=== PATIENT | female | born 1940 | race Caucasian/White ===

== ENCOUNTER 2019-08-27 10:02 | Emergency (ER) | payer MEDICARE, MEDICAID ==
--- OUTSIDE RECORDS SUMMARY | 2019-08-27 10:14 | XMS REPORT | Summary of Care ---
:1940 Author Organization [facility] Address [address] [facility] [place] [address] Care Team Providers Name Role Phone Faizan Remy Primary Care Provider Olivia Beltre Unavailable Gregorio Duran Unavailable Barbara Roe RN Unavailable Grey Layne Unavailable Jh Cooper Unavailable Reason for Visit Reason Comments Emesis Encounter Details Date Type Department Care Team Description 08/09/2019 Emergency [facility] Emergency Department Ishaan Mcgraw DO Emergency [address] [facility] [place] [id number] [place] [address] Allergies Active Allergy Reactions Severity Noted Date Comments Vu Inhibitors Respiratory Reaction 11/18/2013 cough Ambien Other 09/07/2010 Depression s/s Amiodarone Other 09/30/2018 Reports it caused visual disturbance long-term, incontinence. Cheese Dermatologic Reaction 09/08/2014 Levaquin Other 09/07/2010 Caused visual issues, and joint pain Mushrooms Dermatologic Reaction 09/08/2014 Penicillins Contact Dermatitis 12/06/2003 BLISTERS documented as of this encounter (statuses as of 08/10/2019) Medications Medication Sig Dispensed Refills Start Date End Date Status daily vitamin PO TABS Take 1 Tab by 0 Active mouth DAILY. CALCARB 600/D PO Take by mouth 0 Active DAILY. docusate sodium (COLACE) Take 100 mg by 0 Active 100 MG Oral Cap mouth TWICE DAILY. Cyanocobalamin (VITAMIN Take by mouth 0 Active B-12) 250 MCG Oral Tab DAILY. gabapentin (NEURONTIN) Take 1 Cap by 360 Cap 3 11/12/2018 Active 400 MG Oral mouth FOUR TIMES CapIndications: Chronic DAILY. neck pain metoprolol succinate Take 1 Tab by 90 Tab 3 01/06/2019 Active (TOPROL XL) 25 MG Oral mouth DAILY. TABLET SR 24 HR dofetilide (TIKOSYN) 125 Take 1 Cap by 180 Cap 3 01/27/2019 Active MCG Oral Cap mouth EVERY TWELVE HOURS. atorvastatin (LIPITOR) Take 1 Tab by 90 Tab 3 02/17/2019 Active 40 MG Oral Tab mouth DAILY. alendronate (FOSAMAX) 70 Take 1 Tab by 13 Tab 3 02/17/2019 Active MG Oral TabIndications: mouth EVERY 7 Osteoporosis, DAYS. unspecified osteoporosis type, unspecified pathological fracture presence nitroglycerin Place 1 Tab 1 Bottle 2 02/27/2019 Active (NITROSTAT) 0.4 MG under tongue Sublingual SL Tab EVERY FIVE MINUTES NEEDED for chest pain. meclizine (ANTIVERT) 25 Take 1 Tab by 90 Tab 0 02/27/2019 Active MG Oral Tab mouth THREE TIMES DAILY NEEDED for dizziness/vertig o. Mirabegron ER 50 MG Oral Take 50 mg by 30 Tab 5 05/05/2019 Active TABLET SR 24 HR mouth DAILY. spironolactone Take 1 Tab by 30 Tab 11 06/23/2019 Active (ALDACTONE) 25 MG Oral mouth DAILY. TabIndications: Essential hypertension valsartan (DIOVAN) 80 MG Take 1 Tab by 180 Tab 3 07/22/2019 Active Oral Tab mouth TWICE DAILY. ELIQUIS 5 MG Oral Tab TAKE 1 TAB BY 180 Tab 3 08/03/2019 Active MOUTH TWICE DAILY. documented as of this encounter (statuses as of 08/10/2019) Active Problems Problem Noted Date Atrial fibrillation 05/26/2019 Overview: Added automatically from request for surgery [id number] Atrial flutter 01/29/2019 Facet arthritis, degenerative, lumbar spine 01/06/2019 Overview: Added automatically from request for surgery [id number] Atherosclerosis of red cliff coronary artery of red cliff heart 11/12/2018 Chronic left sacroiliac pain 11/12/2018 Overview: Added automatically from request for surgery [id number] Chronic midline posterior neck pain 09/25/2018 Overview: Added automatically from request for surgery [id number] Facet arthritis, degenerative, cervical spine 09/25/2018 Overview: Added automatically from request for surgery [id number] Atherosclerosis of [place] coronary artery of [place] heart 03/04/2018 Closed nondisplaced fracture of right patella with routine healing 11/08/2017 Atrial fibrillation with RVR 01/20/2017 Spondylosis of lumbosacral region without myelopathy or radiculopathy 2014 Chronic midline low back pain without sciatica 05/09/2015 CKD (chronic kidney disease), stage III 12/21/2014 Cervical spinal stenosis C4/5, C5/6, C6/7 04/19/2014 S/P rotator cuff repair 06/17/2013 Overview: RIGHT Paroxysmal atrial fibrillation 11/27/2011 Overview: Cardioversion 11/27/[address] Mason. Successful with 150 J biphasic shock x 1. AAA (abdominal aortic aneurysm) 06/18/2011 Overview: mid level AAA measured 3.42cm AP x 3.46cm LAT in maximum diameter. Unchanged exam as of 01/01/17 GERD (gastroesophageal reflux disease) 11/15/2008 Overview: Esophago-gastroduodenoscopy 10/17 Dr Rolle-grade B esophagitis. Osteoporosis 09/01/2007 Coronary atherosclerosis of red cliff coronary artery 07/25/2007 Overview: Cardiac cath [facility] 04/18: LVEF >50%, total occlusion RCA, 50 calcified mid LAD, left to right collaterals, Nonobstructive discease LCX-medical management. Essential hypertension, benign 07/25/2007 Mixed hyperlipidemia 07/25/2007 documented as of this encounter (statuses as of 08/10/2019) Resolved Problems Problem Noted Date Resolved Date ELISA (acute kidney injury) 07/02/2019 07/22/2019 Troponin level elevated 12/02/2017 07/22/2019 Fall on same level 10/31/2017 12/01/2017 Osteoporosis 05/16/2016 01/20/2017 Leg pain, left 05/09/2015 05/25/2015 Ankle sprain 04/29/2015 05/25/2015 Left foot pain 04/29/2015 05/25/2015 CAD (coronary artery disease) 04/01/2015 05/25/2015 Precordial pain 04/01/2015 05/25/2015 Left ankle injury 03/29/2015 05/25/2015 Mild traumatic brain injury 03/12/2015 05/25/2015 Sinus node dysfunction 02/04/2015 04/01/2015 A-fib 12/02/2014 04/01/2015 Concussion with brief loss of consciousness 11/22/2014 12/21/2014 Spondylosis of cervical region without myelopathy or 04/19/2014 06/08/2014 radiculopathy Carotid stenosis, asymptomatic 11/09/2013 05/25/2015 Rotator cuff (capsule) sprain 02/25/2013 09/24/2013 Shoulder pain, right 02/09/2013 05/06/2013 Knee pain 01/21/2013 09/24/2013 Carotid artery stenosis, asymptomatic 07/21/2012 09/24/2013 Gastric ulcer; benign 11/15/2008 04/01/2015 Overview: EGD [facility] 10/18. Non-cardiac chest pain 11/15/2008 04/01/2015 Overview: Gastro-intestinal source of pain 10/18-treated with proton pump inhibitor 10/18 with resolution of symptoms. Abnormal cardiovascular stress test 10/29/2008 03/04/2014 Overview: Stress echocardiogram 10/25/2008 IMPRESSION: 1. Positive stress echocardiogram for a small region of ischemia at the inferior base. 2. Fair left ventricular function. 3. Sclerotic mitral valve with mild mitral regurgitation and slight left atrial Enlargement. Cardiac catheterization 04/21/2007 Dr. Davalos Atherosclerotic heart disease with nonobstructive left coronary circumflex and a known chronic total occlusion of the mid right coronary artery (right coronary artery not injected). 2. Normal fractional flow reserve in the left coronary circulation, as above. Osteoarthritis cervical spine 04/27/2008 04/01/2015 Carotid artery stenosis 04/27/2008 03/04/2014 Overview: Bilateral. FLANK PAIN 04/27/2008 05/18/2014 Overview: CT scan [facility] 04/19: thickening of right ureter-rule out mass. Pulmonary nodule 04/19/2008 04/01/2015 Overview: 5 MM right mid lung chst xray [facility] 04/19. Insomnia 09/01/2007 06/08/2014 Angina pectoris 07/25/2007 03/04/2014 Overview: Replaced inactive diagnosis documented as of this encounter (statuses as of 08/10/2019) Immunizations Name Administration Dates Next Due Influenza (IM) Preservative Free 07/22/2019, 05/06/2013, 05/08/2012, 06/06/2011, 05/29/2010, 06/06/2009 Influenza (IM) W/Pres 05/16/2016 Influenza Vaccine High Dose 05/26/2018, 05/31/2017, 05/25/2015, 05/18/2014 Influenza Vaccine Whole 05/13/2007 PNEUMOCOCCAL POLYSACCHARIDE VACCINE 12/03/2011 Pneumococcal Conjugate(13 Valent) 05/25/2015 TDAP Vaccine 05/08/2012 Tetanus Vaccine 01/20/2002 Tuberculin Skin Test 04/26/2004 ZOSTER (ZOSTAVAX) VACCINE 06/18/2012 documented as of this encounter Social History Tobacco Use Types Packs/Day Years Used Date Former Smoker Cigarettes 0.25 30 1959 - 12/02/1989 Smokeless Tobacco: Never Used Comments: light smoker, 2-3 cigarettes a day Alcohol Use Drinks/Week oz/Week Comments No 0.0 Sex Assigned at Date Recorded Not on file Job Start Date Occupation Industry Not on file Not on file Not on file Travel History Travel Start Travel End No recent travel history available. documented as of this encounter Last Filed Vital Signs Vital Sign Reading Time Taken Comments Blood Pressure 150/67 08/09/2019 3:30 PM EST Pulse 73 08/09/2019 3:30 PM EST Temperature 36.7 08/09/2019 11:49 AM EST C (98.1 F) Respiratory Rate 18 08/09/2019 3:30 PM EST Oxygen Saturation 94% 08/09/2019 3:30 PM EST Inhaled Oxygen Concentration - - Weight 65.8 kg (145 lb) 08/09/2019 11:49 AM EST Height 157.5 cm (5' 2") 08/09/2019 11:49 AM EST Body Mass Index 26.52 08/09/2019 11:49 AM EST documented in this encounter Discharge Instructions Adeel Thomas DO - 08/09/2019Return to emergency department if nausea and vomiting return as well as tiredness. Take Zofran as needed for nausea but do not let it mask symptoms as discussed and prevent you from coming back. documented in this encounter Plan of Treatment Date Type Specialty Care Team Description 10/02/2019 Office Visit Family Practice Faizan Remy MD [address] [place] [address] 10/02/2019 Orders Only Cardiology 10/02/2019 Office Visit Cardiology Guy Atkinson, LISSA [address] [place] [address] 03/15/2020 Ancillary Procedure Radiology 03/15/2020 Ancillary Procedure Radiology 03/15/2020 Office Visit Vascular Surgery Gregorio Duran MD [address] [place] [address] 05/25/2020 IPPR Ophthalmology 05/25/2020 Ocular Visit Ophthalmology Jh Cooper MD [address] [place] [address] Name Type Priority Associated Diagnoses Date/Time INPT/ED 12 LEAD EKG EKG STAT 08/09/2019 12:27 PM EST Health Maintenance Due Date Last Done Comments HIV SCREENING 1955 ZOSTER IMMUNIZATION SERIES 08/13/2012 06/18/2012 (2 of 3) FALL RISK ASSESSMENT 09/30/2019 09/30/2018, 09/30/2018 MEDICARE ANNUAL WELLNESS 09/30/2019 09/30/2018, 10/01/2017, VISIT 05/25/2015, Additional history exists DEPRESSION SCREENING 07/22/2020 07/22/2019, 04/22/2018 Colonoscopy 12/17/2021 12/17/2016, 12/17/2016, 10/30/2012, Additional history exists DTaP/Tdap/Td Vaccines (2 - 05/08/2022 05/08/2012 Tdap) OSTEOPOROSIS SCREENING 11/12/2028 11/12/2018, 08/23/2011, 08/23/2011, Additional history exists PNEUMOCOCCAL 65+YRS Completed 05/25/2015, 12/03/2011 INFLUENZA VACCINE Completed 07/22/2019, 05/26/2018, 05/31/2017, Additional history exists HEPATITIS A IMMUNIZATION Aged Out No longer eligible SERIES based on patient's age to complete this topic HPV IMMUNIZATION SERIES Aged Out No longer eligible based on patient's age to complete this topic MENINGOCOCCAL VACCINE IMM Aged Out No longer eligible based on patient's age to complete this topic documented as of this encounter Goals Goal Patient Goal Associated Recent Patient-Stated? Author Type Problems Progress Blood Pressure Blood Pressure 150/67 No [place], < 140/90 (08/09/2019 Scotty Reyes, 3:30 PM EST) Note: Hypertension Care Plan Based on the patient's clinical history and according to JNC 8 guidelines target blood pressure goal is less than 140/90. Based on the patient's last blood pressure of BP: 122/64 mmHg the patient is at at goal. As your provider, it is important that I advise you regarding: your current medications and help you with any challenges you may face taking your medications as directed (ex. instructions, cost, side effects, and interactions). lifestyle changes: exercise and medication compliance your clinical goals and how you can achieve success: weight reduction and exercise plan medication management: N/A diet only patient education/self-management tools provided: Yes To successfully manage my Hypertension I will: monitor my blood pressure daily, understanding that my goal is less than 140/ 90 per my healthcare provider's recommendation. I will schedule an appointment with my provider if consistent abnormal readings greater than 160/100. take medications every day as prescribed by my healthcare provider and if unable to take them I will discuss with my provider. monitor for symptoms of chest pain, chest tightness/pressure, irregular heartbeat, persistent dizziness, radiating arm pain, and neck or jaw pain. If any of these symptoms are noticed I will seek medical attention immediately by calling 911 exercise/walk 15 minutes 6 day(s) per week. If I experience chest pain, chest tightness, or shortness of breath, I will seek medical attention immediately. follow a diet rich in fruits, vegetables, and low-fat dairy products with reduced content of saturated & total fat. I will reduce my sodium intake daily. An example is the DASH diet. To obtain more information please refer to the DASH Eating Plan listed in Educational Resources. record my blood pressure results. Nakitae is safe and secure way for you to do this in your medical record online. try to obtain an ideal body weight. My recent weight was Weight: 139 lb ( 63.05 kg). My weight loss goal for my next office visit is 135 . limit alcohol consumption. For men two drinks per day and women one drink per day. if currently smoking, will discuss how to quit smoking with my healthcare provider and work towards quitting. Educational Resources: National Heart, Lung, & Blood [place] http://nhlbi.nih.gov/hbp/index.html The DASH Diet Eating Plan http://www.nhlbi.nih.gov/health/health-topics/ topics/dash/ Academy of Nutrition & DIetetics http://eatright.org National Smoking Cessation Site http://smokefree.gov Blood Pressure Blood Pressure Essential 150/67 (08/09/2019 No [place], < 140/90 hypertension, benign 3:30 PM EST) Scotty Reyes MD Note: Hypertension Care Plan Based on the patient's clinical history and according to JNC 8 guidelines target blood pressure goal is less than 140/90. Based on the patient's last blood pressure of BP: 144/82 mmHg the patient is at above goal. As your provider, it is important that I advise you regarding: your current medications and help you with any challenges you may face taking your medications as directed (ex. instructions, cost, side effects, and interactions). Important lifestyle changes: exercise, weight reduction and dietary sodium reduction your clinical goals and how you can achieve success: exercise plan and diet improvements medication management: N/A diet only patient education/self-management tools provided: Current self-management tools adequate To successfully manage my Hypertension I will: monitor my blood pressure daily, understanding that my goal is less than 140/ 90 per my healthcare provider's recommendation. I will schedule an appointment with my provider if consistent abnormal readings greater than 160/100. take medications every day as prescribed by my healthcare provider and if unable to take them I will discuss with my provider. monitor for symptoms of chest pain, chest tightness/pressure, irregular heartbeat, persistent dizziness, radiating arm pain, and neck or jaw pain. If any of these symptoms are noticed I will seek medical attention immediately by calling 911 exercise/walk 30 minutes 6 day(s) per week. If I experience chest pain, chest tightness, or shortness of breath, I will seek medical attention immediately. follow a diet rich in fruits, vegetables, and low-fat dairy products with reduced content of saturated & total fat. I will reduce my sodium intake daily. An example is the DASH diet. To obtain more information please refer to the DASH Eating Plan listed in Educational Resources. record my blood pressure results. [place] is safe and secure way for you to do this in your medical record online. try to obtain an ideal body weight. My recent weight was Weight: 137 lb ( 62.143 kg). My weight loss goal for my next office visit is 135 . limit alcohol consumption. For men two drinks per day and women one drink per day. if currently smoking, will discuss how to quit smoking with my healthcare provider and work towards quitting. Educational Resources: National Heart, Lung, & Blood [place] http://nhlbi.nih.gov/hbp/index.html The DASH Diet Eating Plan http://www.nhlbi.nih.gov/health/health-topics/ topics/dash/ Academy of Nutrition & DIetetics http://eatright.org National Smoking Cessation Site http://smokefree.gov Blood Pressure < Blood Pressure 150/67 (08/09/2019 3:30 Faizan Bishop MD 140/90 PM EST) Note: This is an individualized treatment (blood pressure) goal for Kayla Gu Rogersienna: Displayed above (on the left) is your goal for blood pressure control. Your most recent blood pressure is also shown above, on the right. You should try to achieve blood pressures that are lower than your goal listed above (on the left). Work with your Real Estate Representative General Faizan Bishop MD Note: This is an individualized treatment (frequent ED use) goal for Kayla L Wosienna: Please work with your Real Estate Representative, who will assist you in meeting your goals of care. Regular appointments with primary care provider Faizan Reyes MD (PCP) Note: This is an individualized lifestyle goal for Kayla Robbins: Please schedule regular visits with your primary care provider (PCP). Care provided in your PCP's office can help reduce your need for additional trips to the Emergency Room. Take all prescribed medications as directed Self-management Faizan Bishop MD Note: This is an individualized self-management goal for Kayla Gu Rogersienna: Please take all prescribed medications as directed. 1. Do not skip doses. If you cannot afford your medications, talk with your doctor. 2. Use a pill reminder system such as a pill box if needed. Your pharmacist can help you with this. 3. Contact your Pharmacy 5 days before your medication runs out. If you cannot take your medications for any reasons, talk with your doctor. 4. Please bring all of your medication bottles and inhalers (or a list of all your medications/inhalers) with you to every visit. Potential barriers to meeting all of your care plan goals will continue to be addressed on an ongoing basis. documented as of this encounter Implants Implanted Type Area Test Baker Device Shelf Model / Serial Identifier Expiration / Lot Date Iol, [id number] 18.0 Diopter - [id number] Left: Eye STORZ [id number] / Implanted: Qty: 1 on 09/04/2012 at [facility] / [id number] Pushlock 3.5mm - [id number] Right: ARTHREX [id number] / Implanted: Qty: 2 on 05/29/2013 at [facility] Shoulder / [id number] [place] Rotator Cuff 5mm - [id number] Right: BIOMET [id number] / Implanted: Qty: 1 on 05/29/2013 at [facility] Shoulder / [id number] documented as of this encounter Procedures Procedure Name Priority Date/Time Associated Comments Diagnosis XR CHEST 2 VIEW PA AND STAT 08/09/2019 2:43 Results for this LATERAL (STANDARD) PM EST procedure are in the results section. CBC WITH DIFFERENTIAL STAT 08/09/2019 1:23 Results for this PM EST procedure are in the results section. NT PROBNP STAT 08/09/2019 1:23 Results for this PM EST procedure are in the results section. TROPONIN STAT 08/09/2019 1:23 Results for this PM EST procedure are in the results section. COMPREHENSIVE STAT 08/09/2019 1:23 Results for this METABOLIC PANEL PM EST procedure are in the results section. IN PT/ED 12 LEAD EKG STAT 08/09/2019 12:27 PM EST documented in this encounter Results XR CHEST 2 VIEW PA AND LATERAL (STANDARD) (08/09/2019 2:43 PM EST) Specimen Impressions Performed At Stable exam. No active disease in the chest. Urgency: Routine. This is a routine medical imaging report. Recommendation: No specific imaging recommendation Signed by Nito Vilchis on 08/09/2019 2:51 PM Narrative Performed At Procedure(s): XR CHEST 2 VIEW PA AND LATERAL (STANDARD) Date of service: 08/09/2019 2:35 PM Provided clinical information: 79 years, Female, "dizziness" Procedure: Standard protocol. Comparison: 06/20/2019 Observations: PA and lateral radiographs of the chest were obtained. Multiple radiopaque wires overlie the chest. The lungs are clear without evidence of focal airspace consolidation. There is no pulmonary vascular congestion. There is no pneumothorax or pleural effusion. The cardiomediastinal silhouette is grossly stable. Thoracic aorta is tortuous and calcified. The included osseous structures are unchanged. Procedure Note Interface, Rad Results - 08/09/2019 2:53 PM EST Procedure(s): XR CHEST 2 VIEW PA AND LATERAL (STANDARD) Date of service: 08/09/2019 2:35 PM Provided clinical information: 79 years, Female, "dizziness" Procedure: Standard protocol. Comparison: 06/20/2019 Observations: PA and lateral radiographs of the chest were obtained. Multiple radiopaque wires overlie the chest. The lungs are clear without evidence of focal airspace consolidation. There is no pulmonary vascular congestion. There is no pneumothorax or pleural effusion. The cardiomediastinal silhouette is grossly stable. Thoracic aorta is tortuous and calcified. The included osseous structures are unchanged. IMPRESSION Stable exam. No active disease in the chest. Urgency: Routine. This is a routine medical imaging report. Recommendation: No specific imaging recommendation Signed by Nito Vilchis on 08/09/2019 2:51 PM NT PROBNP (08/09/2019 1:23 PM EST) NT PRO BNP 2,460 (H) <450 pg/ml [facility] Comment: [facility] Recommended cut points for the diagnostic evaluation of heart failure patients with acute dyspnea* Ages (years) Optimal [place] (pg/ml) <50 450 50-75 900 >75 1800 *The [place] Journal of Cardiology NTproBNP results should be interpreted in the context of the overall picture. Serum concentrations of natriuretic peptides may be elevated in patients with acute myocardial infarction and renal insuffic iency. Certain drugs may alter results. Heterophilic antibodies are known to cause interference with immunoassays. Results which are inconsistent with clinical observation indicate a need for additional testing. NTproBNP testing performed on [employer]. Results will not correlate with other methodologies. Specimen Blood - Blood specimen (specimen) Performing Organization Address City/State/Zipcode Phone Number [facility] [address] [place] [address] TROPONIN (08/09/2019 1:23 PM EST) Troponin 0.016 0.000 - 0.034 [facility] Comment: ng/ml [facility] Negative less than or equal to 0.034 ng/ml Indeterminate 0.0351 - 0.119 ng/ml (Suggest Repeat in 4 Hours) Critical (AMI Cutoff) greater than or equal to 0.120 ng/ml Specimen Blood - Blood specimen (specimen) Performing Organization Address City/State/[facility] Phone Number [facility] [address] [place] [address] COMPREHENSIVE METABOLIC PANEL (08/09/2019 1:23 PM EST) Pathologist [facility] Sodium 135 134 - 145 mmol/L [facility] Potassium 4.0 3.5 - 5.1 mmol/L [facility] Chloride 105 98 - 107 mmol/L [facility] CO2 22 22 - 30 mmol/L [facility] Calcium 8.8 8.3 - 10.1 mg/dl [facility] Albumin 3.5 3.5 - 5.0 g/dl [facility] BUN 11 7 - 17 mg/dl [facility] Creatinine 1.0 0.7 - 1.2 mg/dl [facility] Glucose 95 70 - 99 mg/dl [facility] Total Protein 7.1 6.3 - 8.2 g/dl [facility] Total Bilirubin 1.2 (H) 0.0 - 1.1 MG/DL [facility] AST 28 15 - 46 U/L [facility] ALT 28 9 - 52 U/L [facility] Alkaline 60 40 - 150 U/L [facility] Phosphatase [facility] eGFR 53 See Interpretation [facility] Comment: Below ml/min/1.73ml GROUP Estimated GFR Interpretation: Sq LABORATORY Above 60ml/min/1.73m2 = Normal Renal Function 30-59 ml/min/1.73m2 = Stage 3 Chronic Kidney Disease 15-29 ml/min/1.73m2 = Stage 4 Chronic Kidney Disease Less than 15 ml/min/1.73m2 = Stage 5 Chronic Kidney Disease The GFR value is calculated using the Modification of Diet in Renal Disease ( MDRD) Study Equation which can be found at: https://www.kidney.org/content/asog-recoe-siauhgdj BUN/Creatinine 11 6 - 22 RATIO [facility] LABORATORY Anion Gap 8 3 - 11 mmol/L [facility] A/G Ratio 1.0 0.8 - 2.0 ratio [facility] Specimen Blood - Blood specimen (specimen) Performing Organization Address City/State/Zipcode Phone Number [facility] [address] [place] [address] [phone] CBC WITH DIFFERENTIAL (08/09/2019 1:23 PM EST) WBC Count 6.63 3.98 - 10.04 K/uL [facility] RBC Count 3.72 (L) 3.93 - 5.22 M/UL [facility] Hemoglobin 11.1 (L) 11.2 - 15.7 g/dL [facility] Hematocrit 34.0 (L) 34.1 - 44.9 % [facility] MCV 91.4 79.4 - 94.8 FL [facility] MCH 29.8 25.6 - 32.2 PG [facility] MCHC 32.6 32.2 - 35.5 g/dL [facility] Platelet Count 142 (L) 182 - 369 K/uL [facility] MPV 10.8 9.4 - 12.3 FL [facility] RDW 12.9 11.7 - 14.4 % [facility] Neutrophil % 56.9 34.0 - 71.1 % [facility] Lymphocyte % 29.6 19.3 - 51.7 % [facility] Monocyte % 12.1 4.7 - 12.5 % [facility] Eosinophil % 0.6 (L) 0.7 - 5.8 % [facility] Basophil % 0.6 0.1 - 1.2 % [facility] nRBC % 0.0 0.0 - 0.2 % [facility] Neutrophil # 3.78 1.56 - 6.13 K/UL [facility] Lymphocyte # 1.96 1.18 - 3.74 K/UL [facility] Monocyte # 0.80 0.24 - 0.86 K/UL [facility] Eosinophil # 0.04 0.04 - 0.36 K/UL [facility] Basophil # 0.04 0.01 - 0.08 K/UL [facility] Immature Gran % 0.2 0.0 - 0.4 % [facility] Immature Gran # 0.01 0.00 - 0.03 K/uL [facility] NRBC # 0.00 0.00 - 0.12 K/uL [facility] Specimen Blood - Blood specimen (specimen) Performing Organization Address City/State/Zipcode Phone Number [facility] [address] [place] [address] documented in this encounter Visit Diagnoses Diagnosis Paroxysmal atrial fibrillation (HCC) Atrial fibrillation documented in this encounter Administered Medications Medication Order MAR Action Action Date Dose Rate Site apixaban (ELIQUIS) tablet 5 mg Given 08/09/2019 3:00 PM EST 5 mg 5 mg, Oral, BID, 60 doses, First dose on 08/09/19 at 1405, Last dose on Sat09/07/19 at 2100, For patients who are unable to swallow whole tablets, 5 mg and 2.5 mg ELIQUIS tablets may be crushed and suspended in water, 5% dextrose in water (D5W) , apple juice, or mixed with applesauce and promptly administered orally. Alternatively, ELIQUIS tablets may be crushed and suspended in 60 mL of water or D5W and promptly delivered through a nasogastric tube. Crushed ELIQUIS tablets are stable in water, D5W, apple juice, and applesauce for up to 4 hours., dofetilide (TIKOSYN) capsule 125 mcg Given 08/09/2019 3:01 PM EST 125 mcg 125 mcg, Oral, Q12 HRS, First dose on 08/09/19 at 1500, Until Discontinued, Restarting home medication, For any NEW patient starting therapy with Tikosyn or for dose escalation on ANY patient, the following must be done to monitor for QTc prolongation Baseline EKG (prior to first dose or dose escalation); Tikosyn contraindicated if QTc > 500 msec (550 msec in patients with ventricular conduction abnormalities). EKG 2-3 hours after EVERY administration of Tikosyn. After the FIRST dose of Tikosyn, provider must be notified if the QTc has increased by greater than 15% compared to the baseline QTc OR if the QTc > 500 msec (550 sec in patients with ventricular conduction abnormalities). Any time after the SECOND dose of Tikosyn, provider MUST be notified if QTc exceeds 500 msec (550 msec in patients with ventricular conduction abnormalities). , lactated ringers IV 1,000 mL New Bag 08/09/2019 12:54 PM EST 1,000 mL 1,000 mL, Intravenous, BOLUS, 1 dose, 08/09/19 at 1345 lactated ringers IV 500 mL New Bag 08/09/2019 3:08 PM EST 500 mL 500 mL, Intravenous, BOLUS, 1 dose, 08/09/19 at 1505 metoprolol (LOPRESSOR) injection 5 mg Given 08/09/2019 1:18 PM EST 5 mg 5 mg, Intravenous Push, NOW, 1 dose, 08/09/19 at 1250, Equivalent,maximal B-blockade at ratio of 2.5 mg PO = 1 mg IV, metoprolol succinate (TOPROL XL) 24 hour Given 08/09/2019 3:01 PM EST 25 mg tablet 25 mg 25 mg, Oral, DAILY, First dose on 08/09/19 at 1405, Until Discontinued, This medication dosage form should NOT be crushed. Please call the inpatient Pharmacy for more information. [facility] ext. [phone] [employer] ext. [phone] [facility] ext. 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 Order was discussed with: Unable to determine at this time I discussed all options and Unable to determine at this time (full patient/surrogate requested and agreed to: code until choice is made and new order placed) Full Code 01/27/2019 11:27 AM 02/26/2019 12:34 PM Does the patient have decision making Yes capacity? Order was discussed with: Unable to determine at this time I discussed all options and Unable to determine at this time (full patient/surrogate requested and agreed to: code until choice is made and new order placed) Full Code 12/01/2017 5:34 PM 12/03/2017 3:59 PM Does patient have decision making capacity? yes Order discussed with: Patient I discussed all options and patient/surrogate requested and agreed to: Full Code Full Code 08/06/2016 2:02 AM 08/07/2016 6:39 PM Does patient have decision making capacity? yes Order discussed with: Patient I discussed all options and patient requested and agreed to: Full Code
--- OUTSIDE RECORDS SUMMARY | 2019-08-27 10:14 | XMS REPORT | Summary of Care ---
:1940 Author Organization [facility] Address [address] [facility] [place] [address] Care Team Providers Name Role Phone Faizan Remy Primary Care Provider Olivia Beltre Unavailable Gregorio Duran Unavailable Barbara Roe RN Unavailable Grey Layne Unavailable Jh Cooper Unavailable Reason for Visit Reason Comments Fall on anticoagulation Shoulder Pain Neck Pain Bleeding/Bruising Encounter Details Date Type Department Care Team Description 08/26/2019 Office Visit [place] [facility] Nafisa Mercado, Queta, initial encounter (Primary Dx); 1 [facility] 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 Cheese Dermatologic Reaction 09/08/2014 Levaquin Other 09/07/2010 Caused visual issues, and joint pain Mushrooms Dermatologic Reaction 09/08/2014 Penicillins Contact Dermatitis 12/06/2003 BLISTERS documented as of this encounter (statuses as of 08/26/2019) Medications Medication Sig Dispensed Refills Start Date [...] as of this encounter (statuses as of 08/26/2019) Active Problems Problem Noted Date Atrial fibrillation 05/26/2019 Overview: Added automatically from request for surgery [id number] Atrial flutter 01/29/2019 Facet arthritis, degenerative, lumbar spine 01/06/2019 Overview: Added automatically from request for surgery [id number] Atherosclerosis of iroquois coronary artery of iroquois heart 11/12/2018 Chronic left sacroiliac pain 11/12/2018 Overview: Added automatically from request for surgery [id number] Chronic midline posterior neck pain 09/25/2018 Overview: Added automatically from request for surgery [id number] Facet arthritis, degenerative, cervical spine 09/25/2018 Overview: Added automatically from request for surgery [id number] Atherosclerosis of iroquois coronary artery of iroquois heart 03/04/2018 Closed nondisplaced fracture of right [...] B esophagitis. Osteoporosis 09/01/2007 Coronary atherosclerosis of iroquois coronary artery 07/25/2007 Overview: Cardiac cath [facility] 04/18: LVEF >50%, total occlusion RCA, 50 calcified mid LAD, left to right collaterals, Nonobstructive discease LCX-medical management. Essential hypertension, benign 07/25/2007 Mixed hyperlipidemia 07/25/2007 documented as of this encounter (statuses as of 08/26/2019) Resolved Problems Problem Noted Date Resolved Date [...] Gastric ulcer; benign 11/15/2008 04/01/2015 Overview: EGD [facility] 10/18. Non-cardiac chest pain 11/15/2008 04/01/2015 Overview: [...] FLANK PAIN 04/27/2008 05/18/2014 Overview: CT scan [facility] 04/19: thickening of right ureter-rule out mass. Pulmonary nodule 04/19/2008 04/01/2015 Overview: 5 MM right mid lung chst xray [facility] 04/19. Insomnia 09/01/2007 06/08/2014 Angina pectoris 07/25/2007 03/04/2014 Overview: Replaced inactive diagnosis documented as of this encounter (statuses as of 08/26/2019) Immunizations Name Administration Dates Next Due Influenza [...] of this encounter Last Filed Vital Signs Not on filedocumented in this encounter Progress Notes Nafisa Mercado FNP - 08/26/2019 12:30 PM ESTPATIENT: Kayla Robbins : 1940 DATE OF SERVICE: 08/26/2019 Kayla presents to the walk in clinic with complaints of neck, left shoulder and side pain after a fall on Saturday evening. She stepped backwards and thought she stepped on her cat. In trying to quickly move, she fell, landing on her left side. Has a significant bruise on her left thigh, pain in the arm and shoulder, and has neck discomfort. She also takes a blood thinner. Advised that she needs to go to the ER for evaluation. She agreed and was taken via wheelchair. Author: RAMESH Young 08/26/2019 12:38 documented in this encounter Plan of Treatment Date Type Specialty Care Team Description 09/07/2019 Office Visit Family Practice Argenis Bocanegra DO [address] [place] [id number] 10/02/2019 Office Visit Family Practice Faizan Remy MD [address] [place] [id number] [phone] 10/02/2019 Orders Only Cardiology 10/02/2019 Office Visit Cardiology Guy Atkinson NP [address] [place] [id number] 03/15/2020 Ancillary Procedure Radiology 03/15/2020 Ancillary Procedure Radiology 03/15/2020 Office Visit Vascular Surgery Gregorio Duran MD [address] [place] [address] 05/25/2020 IPPR Ophthalmology 05/25/2020 Ocular Visit Ophthalmology Jh Cooper MD [address] [place] [id number] Health Maintenance Due Date Last Done Comments [...] Progress Blood Pressure Blood Pressure 150/67 No Dewitt, < 140/90 (08/09/2019 Scotty Reyes, 3:30 PM [...] Educational Resources: National Heart, Lung, & Blood [place] http://nhlbi.nih.gov/hbp/index.html The DASH Diet Eating Plan http://www.nhlbi.nih.gov/health/health-topics/ topics/dash/ Academy of Nutrition & DIetetics http://eatright.org National Smoking Cessation Site http://smokefree.gov Blood Pressure Blood Pressure Essential 150/67 (08/09/2019 No Dewitt, < 140/90 hypertension, benign 3:30 PM EST) [...] Educational Resources: National Heart, Lung, & Blood [place] http://nhlbi.nih.gov/hbp/index.html The DASH Diet Eating Plan http://www.nhlbi.nih.gov/health/health-topics/ topics/dash/ Academy of Nutrition & DIetetics http://eatright.org National Smoking Cessation Site http://smokefree.gov Blood Pressure < Blood Pressure 150/67 (08/09/2019 3:30 Faizan Bishop MD 140/90 PM EST) Note: This is an individualized treatment (blood pressure) goal for Kayla L [place]: Displayed above (on the left) is your goal for blood pressure control. Your most recent blood pressure is also shown above, on the right. You should try to achieve blood pressures that are lower than your goal listed above (on the left). Work with your Rotating Field Assembler General Faizan Bishop MD Note: This is an individualized treatment (frequent ED use) goal for Kayla Robbins: Please work with your Rotating Field Assembler, who will assist you in meeting your [...] is an individualized self-management goal for Kayla Robbins: Please take all prescribed medications as directed. [...] of this encounter Implants Implanted Type Area Supervisor Display Fabrication Device Shelf Model / Serial Identifier Expiration / Lot Date Iol, [id number] 18.0 Diopter - [id number] Left: Eye STORZ [id number] / Implanted: Qty: 1 on 09/04/2012 at [facility] / [id number] Pushlock 3.5mm - [id number] Right: [id number] [id number] / Implanted: Qty: 2 on 05/29/2013 at [facility] Shoulder / [id number] [place] Rotator Cuff 5mm - [id number] Right: [id number] / Implanted: Qty: 1 on 05/29/2013 at [facility] Shoulder / [id number] documented as of this encounter Results Not on filedocumented in this encounter Visit Diagnoses Diagnosis Fall, initial encounter Injury of left shoulder, initial encounter Neck pain Cervicalgia Ecchymosis Other specified circulatory system disorders documented in this encounter Insurance Payer Benefit Plan / Subscriber ID Effective Dates Phone Address Type Group [facility] MEDICARE [facility] DUAL COMPLETE xxxxxxxxx 2019-Present [facility] ADVANTAGE [place] (Home) [address], [place] (Work) [id number] documented as of this encounter Advance Directives Type Date Recorded Patient Quality Reviewer Explanation Advance Directives 01/03/2018 10:11 AM Code [...]
--- OUTSIDE RECORDS SUMMARY | 2019-08-27 10:14 | XMS REPORT | Summary of Care ---
:[address] [facility] Address [address] [facility] [place] [address] Care Team Providers Name Role Phone Faizan Remy Primary Care Provider Olivia Beltre Unavailable Gregorio Duran Unavailable Barbara Roe RN Unavailable Grey Layne Unavailable Jh Cooper Unavailable Reason for Visit Reason Comments Check Up Encounter Details Date Type Department Care Team Description 07/22/2019 Office Visit Faizan Brewer, Paroxysmal atrial fibrillation (HCC) (Primary Dx); Practice MD CKD (chronic kidney disease), stage III (HCC); 1 [facility] 1 [facility] Abdominal aortic aneurysm (AAA) without rupture (HCC); [place] [id number] [place] [address] Atherosclerosis of [place] coronary artery of [place] heart with other form of angina pectoris (HCC); [phone] Chronic midline low back pain without sciatica; [phone] Need for influenza vaccination (Fax) Allergies Active Allergy Reactions Severity Noted Date Comments Vu Inhibitors Respiratory Reaction 11/18/2013 cough Ambien Other 09/07/2010 Depression s/s Amiodarone Other 09/30/2018 Reports it caused visual disturbance long-term, incontinence. Cheese Dermatologic Reaction 09/08/2014 Levaquin Other 09/07/2010 Caused visual issues, and joint pain Mushrooms Dermatologic Reaction 09/08/2014 Penicillins Contact Dermatitis 12/06/2003 BLISTERS documented as of this encounter (statuses as of 07/22/2019) Medications Medication Sig Dispensed Refills Start Date End Date Status daily vitamin PO TABS Take 1 Tab by 0 Active mouth DAILY. CALCARB 600/D PO Take by 0 Active mouth DAILY. docusate sodium Take 100 mg 0 Active (COLACE) 100 MG Oral by mouth Cap TWICE DAILY. Cyanocobalamin Take by 0 Active (VITAMIN B-12) 250 MCG mouth DAILY. Oral Tab gabapentin (NEURONTIN) Take 1 Cap by 360 Cap 3 11/12/2018 Active 400 MG Oral mouth FOUR CapIndications: TIMES DAILY. Chronic neck pain metoprolol succinate Take 1 Tab by 90 Tab 3 01/06/2019 Active (TOPROL XL) 25 MG Oral mouth DAILY. TABLET SR 24 HR dofetilide (TIKOSYN) Take 1 Cap by 180 Cap 3 01/27/2019 Active 125 MCG Oral Cap mouth EVERY TWELVE HOURS. apixaban (ELIQUIS) 5 Take 1 Tab by 180 Tab 3 02/02/2019 Active MG Oral Tab mouth TWICE DAILY. atorvastatin (LIPITOR) Take 1 Tab by 90 Tab 3 02/17/2019 Active 40 MG Oral Tab mouth DAILY. alendronate (FOSAMAX) Take 1 Tab by 13 Tab 3 02/17/2019 Active 70 MG Oral mouth EVERY 7 TabIndications: DAYS. Osteoporosis, unspecified osteoporosis type, unspecified pathological fracture presence nitroglycerin Place 1 Tab 1 Bottle 2 02/27/2019 Active (NITROSTAT) 0.4 MG under tongue Sublingual SL Tab EVERY FIVE MINUTES NEEDED for chest pain. meclizine (ANTIVERT) Take 1 Tab by 90 Tab 0 02/27/2019 Active 25 MG Oral Tab mouth THREE TIMES DAILY NEEDED for dizziness/sherin tigo. Mirabegron ER 50 MG Take 50 mg by 30 Tab 5 05/05/2019 Active Oral TABLET SR 24 HR mouth DAILY. spironolactone Take 1 Tab by 30 Tab 11 06/23/2019 Active (ALDACTONE) 25 MG Oral mouth DAILY. TabIndications: Essential hypertension valsartan (DIOVAN) 80 Take 1 Tab by 180 Tab 3 07/22/2019 Active MG Oral Tab mouth TWICE DAILY. pantoprazole Take 1 Tab by 90 Tab 3 01/08/2019 Discontinued (PROTONIX) 40 MG Oral mouth DAILY. 9 Tab ECIndications: Gastroesophageal reflux disease without esophagitis documented as of this encounter (statuses as of 07/22/2019) Active Problems Problem Noted Date Atrial fibrillation 05/26/2019 Overview: Added automatically from request for surgery [id number] Atrial flutter 01/29/2019 Facet arthritis, degenerative, lumbar spine 01/06/2019 Overview: Added automatically from request for surgery [id number] Atherosclerosis of [place] coronary artery of [place] heart 11/12/2018 Chronic left sacroiliac pain 11/12/2018 Overview: Added automatically from request for surgery [id number] Chronic midline posterior neck pain 09/25/2018 Overview: Added automatically from request for surgery [id number] Facet arthritis, degenerative, cervical spine 09/25/2018 Overview: Added automatically from request for surgery [id number] Atherosclerosis of [place] coronary artery of [place] heart 03/04/2018 Closed nondisplaced fracture of right [...] B esophagitis. Osteoporosis 09/01/2007 Coronary atherosclerosis of [place] coronary artery 07/25/2007 Overview: Cardiac cath [facility] 04/18: LVEF >50%, total occlusion RCA, 50 calcified mid LAD, left to right collaterals, Nonobstructive discease LCX-medical management. Essential hypertension, benign 07/25/2007 Mixed hyperlipidemia 07/25/2007 documented as of this encounter (statuses as of 07/22/2019) Resolved Problems Problem Noted Date Resolved Date [...] Gastric ulcer; benign 11/15/2008 04/01/2015 Overview: EGD [facility] 10/18. Non-cardiac chest pain 11/15/2008 04/01/2015 Overview: [...] FLANK PAIN 04/27/2008 05/18/2014 Overview: [place] [facility] 04[place]19: thickening of right ureter-rule out mass. Pulmonary nodule 04/19/2008 04/01/2015 Overview: 5 MM right mid lung [place] [facility] [place]. Insomnia 09/01/2007 06/08/2014 Angina pectoris 07/25/2007 03/04/2014 Overview: Replaced inactive diagnosis documented as of this encounter (statuses as of 07/22/2019) Immunizations Name Administration Dates Next Due Influenza [...] Used Date Former Smoker Cigarettes 0.25 30 1960 - 12/02/1989 Smokeless Tobacco: Never Used Comments: [...] Sign Reading Time Taken Comments Blood Pressure 116/64 07/22/2019 9:13 AM EST Pulse 62 07/22/2019 9:13 AM EST Temperature 36.6 07/22/2019 9:13 AM EST C (97.8 F) Respiratory Rate 18 07/22/2019 9:13 AM EST Oxygen Saturation 96% 07/22/2019 9:13 AM EST Inhaled Oxygen Concentration - - Weight 62.1 kg (137 lb) 07/22/2019 9:13 AM EST Height 157.5 cm (5' 2") 07/22/2019 9:13 AM EST Body Mass Index 25.06 07/22/2019 9:13 AM EST documented in this encounter Progress Notes Faizan Remy MD - 07/22/2019 9:40 AM EST PATIENT: Kayla Robbins : 1940 DATE OF SERVICE: 07/22/2019 CHIEF COMPLAINT: Chief Complaint Patient presents with Check Up Subjective HISTORY OF PRESENT ILLNESS: Kayla Robbins is a 79-y.o. female. HPI Patient is here for assessment of: 1. Abdominal aortic aneurysm (AAA), Follows with Dr. Duran annually 2. Bilateral carotid artery stenosis; currently the right side, stable, follows with Dr. Duran 3. S/P left carotid endarterectomy in 2003; stable 4. Atherosclerosis of [place] coronary artery of [place] heart without angina pectoris; stable on Eliquis, Lipitor 40 5. Diastolic dysfunction; grade 1, with no current symptoms. On Olmesartan, aldactone. 6. Paroxysmal atrial fibrillation with several previous cardioversions, status post pulmonary vein isolation. Follows with cardiology; takes Toprol, Tikosyn, Eliquis 7. S/P ablation of atrial fibrillation; on Eliquis 8. Osteoarthritis of multiple joints; stable, takes tylenol 500 mg every 4 hours as needed for pain up to 3 grams (6 tablets) a day.On Gabapentin 9. Essential hypertension, benign; on Olmesartan, spironolactone. 10. Osteoporosis; stable on alendronate 70 mg weekly Past Medical History: Diagnosis Date A-fib (HCC) Acute coronary syndrome (HCC) ELISA (acute kidney injury) (HCC) 07/02/2019 ASHD 07/25/2007 Cardiac cath [facility] [place] 04/18: LVEF >50%, total occlusion RCA, 50 calcified mid LAD, left to right collaterals, Nonobstructive discease LCX- medical management. Carotid artery stenosis 04/27/2008 Bilateral. DJD[715.90AB] Gastric ulcer; benign 11/15/2008 GERD (gastroesophageal reflux disease) 11/15/2008 HTN 07/25/2007 Hyperlipidemia 07/25/2007 Hypertension Insomnia 09/01/2007 Kidney disorder Non-cardiac chest pain 11/15/2008 Gastro-intestinal source of pain 10/18-treated with proton pump inhibitor 10/18 with resolution of symptoms. Osteoarthritis cervical spine 04/27/2008 Osteoporosis, unspecified 09/01/2007 Postmenopausal Pulmonary nodule 04/19/2008 5 MM right mid lung chst xray [facility] 04/19. Reflux Right patella fracture 10/30/2017 Troponin level elevated 12/02/2017 Family History Problem Relation Age of Onset Heart Father Heart Mother Heart Sister Heart Sister No Known Problems Son Heart Maternal Grandmother Heart Maternal Grandfather Heart Paternal Grandmother Heart Paternal Grandfather Anesth Problems No family history Arthritis No family history Clotting Disorder No family history Cancer No family history Heart Disease No family history Diabetes No family history Kidney Disease No family history Hypertension No family history Thyroid Disease No family history Current Outpatient Medications Medication Sig alendronate (FOSAMAX) 70 MG Oral Tab Take 1 Tab by mouth EVERY 7 DAYS. apixaban (ELIQUIS) 5 MG Oral Tab Take 1 Tab by mouth TWICE DAILY. atorvastatin (LIPITOR) 40 MG Oral Tab Take 1 Tab by mouth DAILY. CALCARB 600/D PO Take by mouth DAILY. Cyanocobalamin (VITAMIN B-12) 250 MCG Oral Tab Take by mouth DAILY. daily vitamin PO TABS Take 1 Tab by mouth DAILY. docusate sodium (COLACE) 100 MG Oral Cap Take 100 mg by mouth TWICE DAILY. dofetilide (TIKOSYN) 125 MCG Oral Cap Take 1 Cap by mouth EVERY TWELVE HOURS. gabapentin (NEURONTIN) 400 MG Oral Cap Take 1 Cap by mouth FOUR TIMES DAILY. meclizine (ANTIVERT) 25 MG Oral Tab Take 1 Tab by mouth THREE TIMES DAILY NEEDED for dizziness/vertigo. metoprolol succinate (TOPROL XL) 25 MG Oral TABLET SR 24 HR Take 1 Tab by mouth DAILY. Mirabegron ER 50 MG Oral TABLET SR 24 HR Take 50 mg by mouth DAILY. nitroglycerin (NITROSTAT) 0.4 MG Sublingual SL Tab Place 1 Tab under tongue EVERY FIVE MINUTES NEEDED for chest pain. spironolactone (ALDACTONE) 25 MG Oral Tab Take 1 Tab by mouth DAILY. valsartan (DIOVAN) 80 MG Oral Tab Take 1 Tab by mouth TWICE DAILY. No current facility-administered medications for this visit. Allergies Allergen Reactions Vu Inhibitors Respiratory Reaction cough Ambien Other Depression s/s Amiodarone Other Reports it caused visual disturbance long-term, incontinence. Cheese Dermatologic Reaction Levaquin Other Caused visual issues, and joint pain Mushrooms Dermatologic Reaction Pcn [Penicillins] Contact Dermatitis BLISTERS Social History Socioeconomic History Marital status: Spouse name: Not on file Number of children: Not on file Years of education: Not on file Highest education level: Not on file Occupational History Not on file Social Needs Financial resource strain: Not on file Food insecurity Worry: Not on file Inability: Not on file Transportation needs Medical: Not on file Non-medical: Not on file Tobacco Use Smoking status: Former Smoker Packs/day: 0.25 Years: 30.00 Pack years: 7.50 Types: Cigarettes Start date: 1959 Last attempt to quit: 12/02/1989 Years since quittin.6 Smokeless tobacco: Never Used Tobacco comment: light smoker, 2-3 cigarettes a day Substance and Sexual Activity Alcohol use: No Alcohol/week: 0.0 standard drinks Drug use: No Sexual activity: Never Lifestyle Physical activity Days per week: Not on file Minutes per session: Not on file Stress: Not on file Relationships Social connections Talks on phone: Not on file Gets together: Not on file Attends holiness service: Not on file Active member of club or organization: Not on file Attends meetings of clubs or organizations: Not on file Relationship status: Not on file Intimate partner violence Fear of current or ex partner: Not on file Emotionally abused: Not on file Physically abused: Not on file Forced sexual activity: Not on file Other Topics Concern Back Care Not Asked Bike Helmet Not Asked Blood Transfusions Not Asked Caffeine Concern Not Asked Exercise Yes Comment: walks daily Hobby Hazards Not Asked International Travel Not Asked Service Not Asked Occupational Exposure Not Asked Seat Belt Not Asked Self-Exams Not Asked Sleep Concern Not Asked Special Diet Yes Comment: low fat and cholesterol Stress Concern No Weight Concern No Social History Narrative 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 Lives alone. Over the last 2 weeks, have you been feeling down, depressed, anxious, or hopeless?: 0 Over the past 2 weeks, have you felt little interest or pleasure in doing things ?: 0 REVIEW OF SYSTEMS: ROS Constitutional: Negative for chills, fever, malaise/fatigue and weight loss. Respiratory: Negative for cough, hemoptysis, sputum production, shortness of breath and wheezing. Cardiovascular: Negative for chest pain and palpitations. Gastrointestinal: Negative for abdominal pain, blood in stool, diarrhea and melena. Genitourinary: Negative for hematuria. Neurological: Negative for headaches. Objective PHYSICAL EXAM: VITALS: BP 116/64 (BP Location: Right arm, Patient Position: Sitting) | Pulse 62 | Temp 97.8 F (36.6 C) (Tympanic) | Resp 18 | Ht 5' 2" (1.575 m) | Wt 137 lb (62.1 kg) | SpO2 96% | BMI 25.06 kg/m Body mass index is 25.06 kg/m. Physical Exam Constitutional: She is oriented to person, place, and time and well-developed, well-nourished, and in no distress. No distress. HENT: Head: Normocephalic and atraumatic. Right Ear: External ear normal. Left Ear: External ear normal. Nose: Nose normal. Eyes: Conjunctivae are normal. Right eye exhibits no discharge. Left eye exhibits no discharge. No scleral icterus. Neck: No thyromegaly present. Cardiovascular: Irregular rhythm and intact distal pulses. scar of left carotid endarterectomy Pulmonary/Chest: Effort normal and breath sounds normal. No respiratory distress. She has no wheezes. She has no rales. Abdominal: Soft. Bowel sounds are normal. Musculoskeletal: She exhibits no edema. Lymphadenopathy: She has no cervical adenopathy. Neurological: She is alert and oriented to person, place, and time. Skin: Skin is warm and dry. She is not diaphoretic. Psychiatric: Affect and judgment normal. Vitals reviewed. ASSESSMENT / IMPRESSION: ICD-9-CM ICD-10-CM 1. Paroxysmal atrial fibrillation (HCC) 427.31 I48.0 2. CKD (chronic kidney disease), stage III (HCC) 585.3 N18.3 3. Abdominal aortic aneurysm (AAA) without rupture (HCC) 441.4 I71.4 4. Atherosclerosis of [place] coronary artery of [place] heart with other form of angina pectoris (HCC) 414.01 I25.118 413.9 5. Chronic midline low back pain without sciatica 724.2 M54.5 338.29 G89.29 6. Need for influenza vaccination V04.81 Z23 [place] FLU VACCINE PRES FREE 6MOS+ 1. Abdominal aortic aneurysm (AAA) without rupture; aorta duplex showed no change. Follows with Dr. Duran annually 2. Bilateral carotid artery stenosis; currently the right side, stable, follows with Dr. Duran 3. S/P left carotid endarterectomy in 2003; stable 4. Atherosclerosis of [place] coronary artery of [place] heart without angina pectoris; stable had cardiac cath, last one was in 2011, showed almost complete occlusion on the right coronary artery, 50% stenosis of the circumflex artery, with stable LAD, on Eliquis, Lipitor 40 5. Diastolic dysfunction; grade 1, with no current symptoms. On Olmesartan, aldactone. 6. Paroxysmal atrial fibrillation with several previous cardioversions, status post pulmonary vein isolation. Follows with cardiology; takes Toprol, Tikosyn, Eliquis 7. S/P ablation of atrial fibrillation; on Eliquis 8. Osteoarthritis of multiple joints; stable, takes tylenol 500 mg every 4 hours as needed for pain up to 3 grams (6 tablets) a day. 9. Essential hypertension, benign; on Olmesartan, spironolactone. 10. Osteoporosis; stable on alendronate 70 mg weekly. Dexa scan done. Normal Vit D 11. Iron deficiency anemia;normal folate and vitamin B12, no significant findings before on colonoscopy, EGD, capsule endoscopy and imaging.To be followed, if persistent, may need to restart iron therapy. 12. Back pain; following with pain clinic Plan Author: Faizan Remy MD 07/22/2019 11:21 documented in this encounter Plan of Treatment Date Type Specialty Care Team Description 10/02/2019 Office Visit Family Practice Faizan Remy MD [address] [place] [address] [phone] 10/02/2019 Orders Only Cardiology 10/02/2019 Office Visit Cardiology Guy Atkinson NP [address] [place] [address] [phone] 03/15/2020 Ancillary Procedure Radiology 03/15/2020 Ancillary Procedure Radiology 03/15/2020 Office Visit Vascular Surgery Gregorio Duran MD [address] [place] [address] [phone] 05/25/2020 IPPR Ophthalmology 05/25/2020 Ocular Visit Ophthalmology Jh Cooper MD [address] [place] [address] [phone] Health Maintenance Due Date Last Done Comments DTaP/Tdap/Td Vaccines (1 - 1951 05/08/2012 Tdap) HIV SCREENING 1955 ZOSTER IMMUNIZATION SERIES 08/13/2012 06/18/2012 (2 of 3) INFLUENZA VACCINE (#1) 2019 05/26/2018, 05/31/2017, 05/16/2016, Additional history exists FALL RISK ASSESSMENT 09/30/2019 09/30/2018, 09/30/2018 DEPRESSION SCREENING 07/22/2020 07/22/2019, 04/22/2018 Colonoscopy 12/17/2021 12/17/2016, 12/17/2016, 10/30/2012, Additional history exists OSTEOPOROSIS SCREENING 11/12/2028 11/12/2018, 08/23/2011, 08/23/2011, Additional history exists PNEUMOCOCCAL 65+YRS Completed 05/25/2015, 12/03/2011 HEPATITIS A IMMUNIZATION Aged Out No longer [...] Type Problems Progress Blood Pressure Blood Pressure 116/64 No Narvon, < 140/90 (07/22/2019 Scotty Reyes, 9:13 AM EST) Note: Hypertension Care Plan Based on [...] Educational Resources. record my blood pressure results. [facility] is safe and secure way for you [...] Educational Resources: National Heart, Lung, & Blood [place] http://nhlbi.nih.gov/hbp/index.html The DASH Diet Eating Plan http://www.nhlbi.nih.gov/health/health-topics/ topics/dash/ Academy of Nutrition & DIetetics http://eatright.org National Smoking Cessation Site http://smokefree.gov Blood Pressure Blood Pressure Essential 116/64 (07/22/2019 No [place]von, < 140/90 hypertension, benign 9:13 AM EST) Scotty Reyes MD Note: Hypertension Care [...] Educational Resources. record my blood pressure results. [facility] is safe and secure way for you [...] Educational Resources: National Heart, Lung, & Blood [place] http://nhlbi.nih.gov/hbp/index.html The DASH Diet Eating Plan http://www.nhlbi.nih.gov/health/health-topics/ topics/dash/ Academy of Nutrition & DIetetics http://eatright.org National Smoking Cessation Site http://smokefree.gov Blood Pressure < Blood Pressure 116/64 (07/22/2019 9:13 Faizan Bishop MD 140/90 AM EST) Note: This is an individualized treatment (blood pressure) goal for Kayla Robbins: Displayed above (on the left) is your goal for blood pressure control. Your most recent blood pressure is also shown above, on the right. You should try to achieve blood pressures that are lower than your goal listed above (on the left). Work with your Manager Asset General Faizan Bishop MD Note: This is an individualized treatment (frequent ED use) goal for Kayla Robbins: Please work with your Manager Asset, who will assist you in meeting your [...] of this encounter Implants Implanted Type Area Flatbed Truck Driver Device Shelf Model / Serial Identifier Expiration / Lot Date Iol, [id number] 18.0 Diopter - [id number] Left: Eye STORZ [id number] / Implanted: Qty: 1 on 09/04/2012 at [facility] / [id number] Pushlock 3.5mm - [id number] Right: ARTHREX [id number] / Implanted: Qty: 2 on 05/29/2013 at [facility] Shoulder / [id number] [place] Rotator Cuff 5mm - [id number] Right: BIOMET [id number] / Implanted: Qty: 1 on 05/29/2013 at [facility] Shoulder / [id number] documented as of this encounter Results Not on filedocumented in this encounter Visit Diagnoses Diagnosis Paroxysmal atrial fibrillation (HCC) Atrial fibrillation CKD (chronic kidney disease), stage III (HCC) Chronic kidney disease, Stage III (moderate) Abdominal aortic aneurysm (AAA) without rupture (HCC) Atherosclerosis of [place] coronary artery of [place] heart with other form of angina pectoris (HCC) Chronic midline low back pain without sciatica Need for influenza vaccination Need for prophylactic vaccination and inoculation against influenza documented in this encounter Insurance Payer Benefit Plan / Subscriber ID Effective Dates Phone Address Type Group [facility] xxxxxxxxx 2019-Prese [facility] [place]AN [place] MEDICAID [facility] xxxxxxxx 2016-Presen Medicaid [place] MEDICAID t ([place]) [place] [address] [place], [place] (Work) [id number] documented as of this encounter Advance Directives Type Date Recorded Patient Retort Feeder Ground Bone Explanation Advance Directives 01/03/2018 10:11 AM Code [...]
--- OUTSIDE RECORDS SUMMARY | 2019-08-27 10:15 | XMS REPORT | Summary of Care ---
:1940 Author Organization [facility] Address [address] [facility] [place] [address] Care Team Providers Name Role Phone Faizan Remy Primary Care Provider Olivia Beltre Unavailable Gregorio Duran Unavailable Barbara Roe RN Unavailable [place]ne Unavailable Jh Cooper Unavailable Reason for Visit Reason Comments Follow Up Encounter Details Date Type Department Care Team Description 07/02/2019 Office Visit [facility] Guy Atkinson NP Paroxysmal atrial fibrillation (Primary Dx); [address] ELISA (acute kidney injury) ([facility]); [place] [id number] [place] [id number] Atrial fibrillation with RVR ([facility]); [phone] Typical atrial flutter ([facility]) Allergies Active Allergy Reactions Severity Noted Date Comments Vu Inhibitors Respiratory Reaction 11/18/2013 cough Ambien Other 09/07/2010 Depression s/s Amiodarone Other 09/30/2018 Reports it caused visual disturbance long-term, incontinence. Cheese Dermatologic Reaction 09/08/2014 Levaquin Other 09/07/2010 Caused visual issues, and joint pain Mushrooms Dermatologic Reaction 09/08/2014 Penicillins Contact Dermatitis 12/06/2003 BLISTERS documented as of this encounter (statuses as of 07/02/2019) Medications Medication Sig Dispensed Refills Start Date End Date Status daily vitamin PO TABS Take 1 Tab 0 Active by mouth DAILY. CALCARB 600/D PO Take by 0 Active mouth DAILY. docusate sodium Take 100 mg 0 Active (COLACE) 100 MG Oral by mouth Cap TWICE DAILY. Cyanocobalamin Take by 0 Active (VITAMIN B-12) 250 mouth DAILY. MCG Oral Tab gabapentin Take 1 Cap 360 Cap 3 11/12/2018 Active (NEURONTIN) 400 MG by mouth Oral CapIndications: FOUR TIMES Chronic neck pain DAILY. metoprolol succinate Take 1 Tab 90 Tab 3 01/06/2019 Active (TOPROL XL) 25 MG by mouth Oral TABLET SR 24 HR DAILY. pantoprazole Take 1 Tab 90 Tab 3 01/08/2019 Active (PROTONIX) 40 MG Oral by mouth Tab ECIndications: DAILY. Gastroesophageal reflux disease without esophagitis dofetilide (TIKOSYN) Take 1 Cap 180 Cap 3 01/27/2019 Active 125 MCG Oral Cap by mouth EVERY TWELVE HOURS. apixaban (ELIQUIS) 5 Take 1 Tab 180 Tab 3 02/02/2019 Active MG Oral Tab by mouth TWICE DAILY. atorvastatin Take 1 Tab 90 Tab 3 02/17/2019 Active (LIPITOR) 40 MG Oral by mouth Tab DAILY. alendronate (FOSAMAX) Take 1 Tab 13 Tab 3 02/17/2019 Active 70 MG Oral by mouth TabIndications: EVERY 7 Osteoporosis, DAYS. unspecified osteoporosis type, unspecified pathological fracture presence nitroglycerin Place 1 Tab 1 Bottle 2 02/27/2019 Active (NITROSTAT) 0.4 MG under tongue Sublingual SL Tab EVERY FIVE MINUTES NEEDED for chest pain. meclizine (ANTIVERT) Take 1 Tab 90 Tab 0 02/27/2019 Active 25 MG Oral Tab by mouth THREE TIMES DAILY NEEDED for dizziness/ve rtigo. Mirabegron ER 50 MG Take 50 mg 30 Tab 5 05/05/2019 Active Oral TABLET SR 24 HR by mouth DAILY. Olmesartan Medoxomil Take 2 Tabs 60 Tab 0 06/20/2019 Active 20 MG Oral Tab by mouth DAILY. spironolactone Take 1 Tab 30 Tab 11 06/23/2019 Active (ALDACTONE) 25 MG by mouth Oral TabIndications: DAILY. Essential hypertension aspirin (ECOTRIN) 81 Take 1 Tab 0 12/31/2016 07/02/20 Discontinued MG Oral Tab EC by mouth. 19 (Provider Cancelled) promethazine Take 1 Tab 30 Tab 0 04/25/2019 07/02/20 Discontinued (PHENERGAN) 12.5 MG by mouth 19 (Patient stopped Oral Tab EVERY SIX the medication) HOURS NEEDED (N/V). documented as of this encounter (statuses as of 07/02/2019) Active Problems Problem Noted Date ELISA (acute kidney injury) 07/02/2019 Atrial fibrillation 05/26/2019 Overview: Added automatically from request for surgery [id number] Atrial flutter 01/29/2019 Facet arthritis, degenerative, lumbar spine 01/06/2019 Overview: Added automatically from request for surgery [id number] Atherosclerosis of [place] coronary artery of [place] heart 11/12/2018 Chronic left sacroiliac pain 11/12/2018 Overview: Added automatically from request for surgery [id number] Chronic midline posterior neck pain 09/25/2018 Overview: Added automatically from request for surgery [id number] Facet arthritis, degenerative, cervical spine 09/25/2018 Overview: Added automatically from request for surgery [id number] Atherosclerosis of [place] coronary artery of [place] heart 03/04/2018 Troponin level elevated 12/02/2017 Closed nondisplaced fracture of right patella with [...] B esophagitis. Osteoporosis 09/01/2007 Coronary atherosclerosis of [place] coronary artery 07/25/2007 Overview: Cardiac cath [place] 04/18: LVEF >50%, total occlusion RCA, 50 calcified mid LAD, left to right collaterals, Nonobstructive discease LCX-medical management. Essential hypertension, benign 07/25/2007 Mixed hyperlipidemia 07/25/2007 documented as of this encounter (statuses as of 07/02/2019) Resolved Problems Problem Noted Date Resolved Date Fall on same level 10/31/2017 12/01/2017 Osteoporosis [...] Gastric ulcer; benign 11/15/2008 04/01/2015 Overview: EGD [facility] 10/18. Non-cardiac chest pain 11/15/2008 04/01/2015 Overview: [...] FLANK PAIN 04/27/2008 05/18/2014 Overview: CT scan [facility] 04/19: thickening of right ureter-rule out mass. Pulmonary nodule 04/19/2008 04/01/2015 Overview: 5 MM right mid lung chst xray [facility] 04/19. Insomnia 09/01/2007 06/08/2014 Angina pectoris 07/25/2007 03/04/2014 Overview: Replaced inactive diagnosis documented as of this encounter (statuses as of 07/02/2019) Immunizations Name Administration Dates Next Due Depo Medrol (40mg) 03/31/2013, 02/09/2013, 07/23/2012 Influenza (IM) Preservative Free 05/06/2013, 05/08/2012, 06/06/2011, 05/29/2010, 06/06/2009 Influenza (IM) W/Pres 05/16/2016 Influenza Vaccine High Dose 05/26/2018, 05/31/2017, 05/25/2015, 05/18/2014 Influenza Vaccine Whole 05/13/2007 Kenalog (10 mg) 04/12/2016 Kenalog (40 mg) 09/03/2016, 10/31/2012 PNEUMOCOCCAL POLYSACCHARIDE VACCINE 12/03/2011 Pneumococcal Conjugate(13 Valent) [...] Sign Reading Time Taken Comments Blood Pressure 120/68 07/02/2019 1:41 PM EST Pulse 77 07/02/2019 1:41 PM EST Temperature - - Respiratory Rate - - Oxygen Saturation - - Inhaled Oxygen Concentration - - Weight 62.3 kg (137 lb 6.4 oz) 07/02/2019 1:41 PM EST Height 157.5 cm (5' 2") 07/02/2019 1:41 PM EST Body Mass Index 25.13 07/02/2019 1:41 PM EST documented in this encounter Patient Instructions Patient InstructionsGuy Atkinson NP - 07/02/2019 1:40 PM EST Provider's Instructions Reason for Visit to Cardiology: 1. Paroxysmal atrial fibrillation 2. ELISA (acute kidney injury) (HCC) 3. Atrial fibrillation with RVR (HCC) 4. Typical atrial flutter (HCC) Medications: Take medications as directed. Stop Aspirin Activity/Restrictions: Activity as tolerated. Discharge Diet: Heart Healthy Follow Up Care: Please call with any concerns [phone] Follow up in three months. Time: 14:46 Smoking: If you or your caregiver smoke, we recommend that you quit. For smoking cessation help, please callthe National Quit Line at . If you feel that your condition, or the condition of the person you are responsible for, is getting worse or if you develop new symptoms, please call. If you feel your condition is an emergency pleasego to the closest Emergency Department for evaluation. *Please Return Patient Satisfaction Survey* Thank you for letting me take part in your care. Sincerely, YOHANA Berman 2: 47 PM EST documented in this encounter Plan of Treatment Date Type Specialty Care Team Description 07/22/2019 Office Visit Family Practice Faizan Remy MD [address] [place] [address] [phone] 10/02/2019 Orders Only Cardiology 10/02/2019 Office Visit Cardiology Guy Atkinson NP [address] [address] [phone] 03/15/2020 Ancillary Procedure Radiology 03/15/2020 Ancillary Procedure Radiology 03/15/2020 Office Visit Vascular Surgery Gregorio Duran MD [address] [place] [address] [phone] 05/25/2020 IPPR Ophthalmology 05/25/2020 Ocular Visit Ophthalmology Jh Cooper MD [address] [place] [address] [phone] Health Maintenance Due Date Last Done Comments HIV SCREENING 1955 ZOSTER IMMUNIZATION SERIES 08/13/2012 06/18/2012 (2 of 3) INFLUENZA VACCINE (#1) 2019 05/26/2018, 05/31/2017, 05/16/2016, Additional history exists DEPRESSION SCREENING 09/30/2019 09/30/2018, 04/22/2018 FALL RISK ASSESSMENT 09/30/2019 09/30/2018, 09/30/2018 Colonoscopy 12/17/2021 12/17/2016, 12/17/2016, 10/30/2012, Additional history exists OSTEOPOROSIS SCREENING 11/12/2028 11/12/2018, 08/23/2011, 08/23/2011, Additional history exists PNEUMOCOCCAL 65+YRS Completed 05/25/2015, 12/03/2011 HPV IMMUNIZATION SERIES Aged Out No longer eligible based on patient's age to complete this topic MENINGOCOCCAL VACCINE IMM Aged Out No longer eligible based on patient's age to complete this topic documented as of this encounter Goals Goal Patient Goal Associated Recent Patient-Stated? Author Type Problems Progress Blood Pressure Blood Pressure 120/68 No Assumption, < 140/90 (07/02/2019 Scotty Reyes, 1:41 PM EST) Note: Hypertension Care Plan Based [...] Educational Resources. record my blood pressure results. eGEsphione is safe and secure way for you [...] Educational Resources: National Heart, Lung, & Blood Chalmers http://nhlbi.nih.gov/hbp/index.html The DASH Diet Eating Plan http://www.nhlbi.nih.gov/health/health-topics/ topics/dash/ Academy of Nutrition & DIetetics http://eatright.org National Smoking Cessation Site http://smokefree.gov Blood Pressure Blood Pressure Essential 120/68 (07/02/2019 No Assumption, < 140/90 hypertension, benign 1:41 PM EST) Scotty Reyes MD Note: Hypertension [...] Educational Resources: National Heart, Lung, & Blood [place] http://nhlbi.nih.gov/hbp/index.html The DASH Diet Eating Plan http://www.nhlbi.nih.gov/health/health-topics/ topics/dash/ Academy of Nutrition & DIetetics http://eatright.org National Smoking Cessation Site http://smokefree.gov Blood Pressure < Blood Pressure 120/68 (07/02/2019 1:41 No Faizan Remy MD 140/90 PM EST) Note: This is an individualized treatment (blood pressure) goal for Kayla Robbins: Displayed above (on the left) is your goal for blood pressure control. Your most recent blood pressure is also shown above, on the right. You should try to achieve blood pressures that are lower than your goal listed above (on the left). Take all prescribed medications as directed Self-management [...] of this encounter Implants Implanted Type Area Certified Surgical First Assistant Device Shelf Model / Serial Identifier Expiration / Lot Date Iol, [id number] 18.0 Diopter - [id number] Left: Eye STORZ [id number] / Implanted: Qty: 1 on 09/04/2012 at [facility] / [id number] Pushlock 3.5mm - [id number] Right: ARTHREX [id number] / Implanted: Qty: 2 on 05/29/2013 at [facility] Shoulder / [id number] [place] Rotator Cuff 5mm - [id number] Right: BIOMET [id number] / Implanted: Qty: 1 on 05/29/2013 at [facility] Shoulder / [id number] documented as of this encounter Results Not on filedocumented in this encounter Visit Diagnoses Diagnosis Paroxysmal atrial fibrillation - Primary Atrial fibrillation ELISA (acute kidney injury) (HCC) Acute kidney failure, unspecified Atrial fibrillation with RVR (HCC) Atrial fibrillation Typical atrial flutter (HCC) Atrial flutter documented in this encounter Insurance Payer Benefit Plan / Subscriber ID Effective Dates Phone Address Type Group [facility] xxxxxxxxx 2019-Prese [facility] PLAN [employer] [place] xxxxxxxx 2016-[place] t (Home) [place] [id number] [place] (Work) [id number] documented as of this encounter Advance Directives Type Date Recorded Patient Lotus Notes Administrator Explanation Advance Directives 01/03/2018 10:11 AM Code [...]
[2019-08-27 10:19] VITALS: BP 135/55
--- NOTE | 2019-08-27 10:29 | UC ---
Hip/Pelvis Pain - HPI Summary HPI Summary: 79 yo female presents s/p fall. She tells me that on 08/29/19 she was at home and her cat was under her feet - pt went to step to avoid the cat and lost her balance. Fell and landed on her left shoulder, ribs, and hip. Did not hit her head or have LOC. She was able to get to her feet on her own power. Since the fall she has had bruising to her left ribs and hip with pain in these areas. She also has pain at her proximal clavicle and lower back. She has been taking tylenol for pain with little relief. Does have a dry cough - hurts to cough in left ribs. She denies headache, dizziness, neck pain, weakness, numbness, SOB, chest pain, abdominal pain, n/v, dysuria, or loss of bowel/bladder control. - History Of Current Complaint Chief Complaint: UCUpperExtremity Stated Complaint: FELL SHOULDER/NECK/HIP INJURY Time Seen by Provider: 08/27/19 10:29 Hx Obtained From: Patient Onset/Duration: Sudden Onset Severity Initially: Moderate Severity Currently: Moderate Pain Intensity: 8 Pain Scale Used: 0-10 Numeric - Allergies/Home Medications Allergies/Adverse Reactions: Allergies Allergy/AdvReac Type Severity Reaction Status Date / Time MAURICIO Inhibitors Allergy Unknown Verified 08/27/19 10:13 Reaction Details levofloxacin [From Levaquin] Allergy Dizziness Verified 08/27/19 10:13 Penicillins Allergy Swelling Verified 08/27/19 10:13 zolpidem [From Ambien] Allergy Dizziness Verified 08/27/19 10:13 PMH/Surg Hx/FS Hx/Imm Hx Cardiovascular History: Cardiac Disease, Hypertension, Atrial Fibrillation - Surgical History Surgical History: Yes Surgery Procedure, Year, and Place: TUBAL PREG. EUFEMIA. TOTAL HYSTERECTOMY [place]. 2003 LEFT [facility]. 2006, 2008, 2010 CARDIAC CATH [facility]. 02/02/2015 ABLATION FOR A-FIB [place]. LEFT CATARACT [facility] - Family History Known Family History: Positive: Unknown - Social History Occupation: Retired Lives: Alone Alcohol Use: None Substance Use Type: None Smoking Status (MU): Former Smoker Type: Cigarettes Amount Used/How Often: 1PPWK 25 YRS Have You Smoked in the Last Year: No When Did the Patient Quit Smoking/Using Tobacco: Review of Systems All Other Systems Reviewed And Are Negative: No Constitutional: Positive: Negative Skin: Positive: Bruising Eyes: Positive: Negative ENT: Positive: Negative Respiratory: Positive: Cough Cardiovascular: Positive: Negative Gastrointestinal: Positive: Negative Genitourinary: Positive: Negative Motor: Positive: Negative Neurovascular: Positive: Negative Musculoskeletal: Positive: Other: - Left hip pain. Left rib pain. Low back pain. Neurological: Positive: Negative Psychological: Positive: Negative Physical Exam - Summary Physical Exam Summary: GENERAL: NAD. WDWN. No pain distress. SKIN: Large ecchymosis to left lateral thigh mildly TTP. Two small areas of ecchymosis to left posterior-axillary ribs. HEENT: Head: AT/NC. No raccoon eyes or battles sign. Eyes: PERRLA. EOM intact. Ears: Hearing grossly normal. TMs intact, no bulging, erythema, or edema. No hemotympanum Nose: Nasal mucosa pink and moist. NTTP maxillary and frontal sinus. NECK: Supple. Nontender. FROM CHEST: CTAB. No r/r/w. No accessory muscle use. Breathing comfortably and in no distress. CV: Pulses intact. Brisk cap refill. ABDOMEN: Soft. NTTP. Bowel sounds present MSK: FROM in B/L UEs and LEs with symmetric strength. TTP at left proximal clavicle. TTP about left midaxillary ribs 5-10. TTP at ~L4 point tenderness. Negative SLR. FROM left hip without pain. No hip joint ttp. NEURO: A&Ox3. 3 word recall, remote, recent memory, ability to follow 2-step directions, and attention intact. CN: II: Peripheral fritz intact. Vision normal. III, IV, : EOMI. No nystagmus. PERRLA. V: Sensations intact and symmetric. Opens mouth and clenches teeth. VII: No facial asymmetry. Forehead wrinkles. Grins, shuts eyes, frowns, puffs cheeks. VIII: Hearing intact to finger rub. IX, X: Swallows and coughs. Uvula midline. XI: Shrugs shoulders. Turns head against resistance. XII: No tongue deviation Yxafoz-uj-nvyn are intact. Gait with normal base. Romberg: maintains balance, no pronator drift. Normal speech. No facial drooping. Sensations intact b/l L3-S1. PSYCH: Age appropriate behavior. Triage Information Reviewed: Yes Vital Signs: Initial Vital Signs Temp 98.8 F 08/27/19 10:15 Pulse 66 08/27/19 10:15 Resp 20 08/27/19 10:15 BP 135/55 08/27/19 10:15 Pulse Ox 95 08/27/19 10:15 Vital Signs Reviewed: Yes Diagnostics - Radiology Chest CT Radiology Interpretation Completed By: Radiologist Summary of Radiographic Findings: IMPRESSION: #. No CT evidence for traumatic thoracic injury within limits of noncontrast exam. #. Extensive coronary artery calcifications and mitral valve calcification. Lumbar CT Radiology Interpretation Completed By: Radiologist Summary of Radiographic Findings: IMPRESSION: 1. OSTEOPENIA. 2. DEGENERATIVE DISC DISEASE AND OSTEOARTHRITIS DESCRIBED ABOVE. 3. 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 4. NO ACUTE OSSEOUS INJURY TO THE LUMBAR SPINE. Hip XR Radiology Interpretation Completed By: Radiologist Summary of Radiographic Findings: IMPRESSION: #. No radiographic evidence for LEFT hip fracture. #. No radiographic abnormality to correspond with LEFT hip pain. Hip Injury Course/Dx - Course Course Of Treatment: Imaging as above. Discussed results with pt. She aware she has a AAA and is followed by cardiology at [place]. Suspect contusions and muscle strains from the fall. She has pain medication at home, but has not been taking it - recommended to take as prescribed for pain. She has a follow up in about 10 days with her PCP - advised to keep these as scheduled for a recheck. - Differential Dx/Diagnosis Provider Diagnosis: Fall, Contusion, Rib pain on left side Discharge ED - Sign-Out/Discharge Documenting (check all that apply): Patient Departure All imaging exams completed and their final reports reviewed: Yes - Discharge Plan Condition: Stable Disposition: HOME Patient Education Materials: Contusion in Adults (ED) Referrals: Faizan Remy MD [Primary Care Provider] - 1 Week Additional Instructions: If you develop a fever, shortness of breath, chest pain, new or worsening symptoms - please call your PCP or go to the ED immediately. The scans of your back, chest, ribs, and hip did not show any broken bones today. 1) Rest and apply ice to your areas of pain 2) May take your at home pain medication as directed for discomfort 3) Please keep your upcoming appointment with your primary doctor for a recheck of your symptoms - Billing Disposition and Condition Condition: STABLE Disposition: Home
== END 2019-08-27 11:35 | disposition home or self-care (01) ==
LOC: UCEAST 10:02
DX: S70.12XA Contusion of left thigh, initial encounter (principal); S20.20XA Contusion of thorax, unspecified, initial encounter; I25.10 Atherosclerotic heart disease of native coronary artery without angina pectoris; I10 Essential (primary) hypertension; I05.9 Rheumatic mitral valve disease, unspecified; I70.0 Atherosclerosis of aorta; I71.4 Abdominal aortic aneurysm, without rupture; M85.88 Other specified disorders of bone density and structure, other site; M51.36 Other intervertebral disc degeneration, lumbar region; M47.896 Other spondylosis, lumbar region; R07.89 Other chest pain; Z88.0 Allergy status to penicillin; Z88.1 Allergy status to other antibiotic agents; Z88.8 Allergy status to other drugs, medicaments and biological substances; Z87.891 Personal history of nicotine dependence; W19.XXXA Unspecified fall, initial encounter; Y92.009 Unspecified place in unspecified non-institutional (private) residence as the place of occurrence of the external cause
CPT/HCPCS: 71250; 72131; 99201; G0463